=== PATIENT | male | born 1955 | race Caucasian/White ===

== ENCOUNTER 2020-09-03 04:09 | Emergency (ER) | payer OTHER ==
[~2020-09-03 04:09] MED LIST: AMLODIPINE BESY10 MG PO; IBUPROFEN800 MG PO; LISINOPRIL 10MG10 MG PO; PERCOCET 5-3251 EACH PO; TYLENOL #31 EACH PO
[2020-09-03 04:29] LABS: BASOPHIL 0.8 % (0-2); EOSINOPHIL 0.3 % (0-5); HCT 45.1 % (42.0-52.0); HGB 15.2 g/dl (13.2-18.0); LYMPHOCYTE 32.1 % (15-48); MCH 32.2 pg (25.0-31.0); MCHC 33.7 g/dL (32.0-36.0); MCV 95.6 fL (78.0-100.0); MONOCYTE 10.4 % (0-12); MPV 10.4 fL (6.0-9.5); NEUTROPHIL 56.2 % (41-80); NRBC 0; PLT 296 K/uL (150-400); RBC 4.72 M/uL (4.70-6.00); RDW 12.6 % (11.5-14.0); WBC 8.7 K/uL (4.0-10.5)
[2020-09-03 04:36] LABS: INR 1.05 (0.9-1.2); PROTHROMBIN TIME 13.1 SECONDS (11.8-13.4); PTT 26.5 SECONDS (24.4-34.7)
[2020-09-03 04:44] LABS: ALBUMIN 3.6 g/dL (3.4-5.0); BILIRUBIN - TOTAL 0.2 mg/dL (0.2-1.0); BUN/CREAT RATIO (CALC) 20.9 RATIO; CREATININE 1.15 mg/dL (0.67-1.17); GLOBULIN (CALCULATION) 4.2 g/dL; POTASSIUM 4.3 mmol/L (3.5-5.1); TOTAL PROTEIN 7.8 g/dL (6.4-8.2)
[2020-09-03] MEDS ORDERED: CARAFATE1 GM PO (06:36)
== END 2020-09-03 06:52 | disposition home or self-care (01) ==
LOC: FER 04:09
PROVIDERS: Emergency Medicine
DX: K21.9 Gastro-esophageal reflux disease without esophagitis (principal); I10 Essential (primary) hypertension; Z79.899 Other long term (current) drug therapy
CPT/HCPCS: 36415; 71045; 80053; 84484; 85025; 85610; 85730; 93005; J1885